=== PATIENT | male | born 1980 | race Caucasian/White ===

== ENCOUNTER 2016-12-25 14:11 | Emergency (ER) | payer OTHER ==
[~2016-12-25] VITALS: Ht 175.3 cm; Wt 147.8 kg
[~2016-12-25 14:11] MED LIST: CHOL100010 PO; LISI-461 PO; METH10TA2 PO; VENL150C56 PO
[2016-12-25 14:16] VITALS: TEMP 36.6; Ht 175.3 cm; Wt 147.8 kg
[2016-12-25] MEDS ORDERED: BUPR8MIS PO (16:15)
[2016-12-25] MEDS ORDERED: AMPH1TAB58 PO (16:15)
[2016-12-25] MEDS ORDERED: AMPH30TA2 PO (16:15)
[2016-12-25] MEDS ORDERED: TPRSR/100 PO (16:15)
[2016-12-25] MEDS ORDERED: BUPR8MIS SL ×2 (16:15)
[2016-12-25 16:28] LABS: BASO % 0.5 %; BASO ABS # 0.04 K/uL (0-0.2); COMPLETE YES; EOS % 4.7 %; HEMATOCRIT 45.6 % (42-52); IG% 0.4 %; LYMPH % 30.6 %; LYMPH ABS # 2.39 K/uL (1.2-3.4); MEAN CELL VOLUME 85.4 fL (80-100); MEAN CORPUSCULAR HEMOGLOBIN 29.6 pg (25-34); MEAN CORPUSCULAR HGB CONC 34.6 g/dl (32-36); MEAN PLATELET VOLUME 9.6 fL (7.4-10.4); MONO % 10.5 %; NEUT % 53.3 %; PLATELET COUNT 198 K/uL (130-400); RED BLOOD COUNT 5.34 M/uL (4.7-6.1); WHITE BLOOD COUNT 7.81 K/uL (4.8-10.8)
[2016-12-25 16:40] LABS: PARTIAL THROMBOPLASTIN RATIO 1.1; PROTHROMBIN TIME (PATIENT) 10.6 SECONDS (9.0-12.0)
[2016-12-25 16:44] LABS: BUN/CREATININE RATIO 11.9 (10-20); CALCIUM 8.3 mg/dl (8.5-10.1); POTASSIUM 4.1 mmol/L (3.5-5.1)
--- NOTE | 2016-12-25 17:14 | DIAGNOSTIC IMAGING REPORT ---
LEFT FOOT 3 VIEWS CLINICAL HISTORY: Left foot pain and swelling. FINDINGS: 3 views of the left foot are obtained. No prior studies are available for comparison at the time of dictation. The skeletal structures are well mineralized. No fracture is seen. The joint spaces of the foot are well-maintained. Soft tissue swelling is present along the dorsal aspect of the foot. IMPRESSION: Soft tissue swelling with no acute bony abnormality identified in the left foot. Electronically signed by: Jimmie Garcia M.D. 12/25/2016 5:12 PM Dictated Date/Time: 12/25/2016 5:11 PM
--- NOTE | 2016-12-25 17:20 | DIAGNOSTIC IMAGING REPORT ---
LEFT TIBIA AND FIBULA 2 VIEWS CLINICAL HISTORY: Left leg swelling. FINDINGS: AP and lateral views of the left tibia and fibula are obtained. No prior studies are available for comparison at the time of dictation. The skeletal structures are well mineralized. There is no radiographic evidence of left tibial or fibular fracture. The knee and ankle joints are grossly maintained. Soft tissue edema is present throughout the calf. IMPRESSION: Soft tissue swelling with no acute bony abnormality. Electronically signed by: Jimmie Garcia M.D. 12/25/2016 5:19 PM Dictated Date/Time: 12/25/2016 5:18 PM
[2016-12-25 17:30] VITALS: BP 132/75; PULSE 82; O2SAT 97
--- NOTE | 2016-12-25 18:42 | DIAGNOSTIC IMAGING REPORT ---
ULTRASOUND LEFT LOWER EXTREMITY VENOUS CLINICAL HISTORY: Left leg pain and swelling. COMPARISON STUDY: No priors. TECHNIQUE: Real-time, grayscale, and color Doppler sonography of the deep veins of the left lower extremity was performed from the inguinal crease to the calf. Compression and augmentation were utilized. FINDINGS: There is no sonographic evidence of deep venous thrombosis identified in the left lower extremity. The common femoral, superficial femoral, and popliteal veins are patent and normally compressible. The greater saphenous vein and the profunda femoris vein at the junction with the common femoral vein are clear. The visualized calf veins are patent. IMPRESSION: There is no sonographic evidence of deep venous thrombosis identified in the left lower extremity. Electronically signed by: Jimmie Garcia M.D. 12/25/2016 6:40 PM Dictated Date/Time: 12/25/2016 6:40 PM
--- NOTE | 2016-12-25 19:11 | EMERGENCY ROOM VISIT NOTE ---
History First contact with patient: 15:49 Chief Complaint: LEG PAIN,LEG INJURY Stated Complaint: LOWER LEFT LEG SOLID,TOP OF FOOT HURTS History of Present Illness The patient is a 36 year old male who presents to the Emergency Room with complaints of left lower leg pain and swelling. The patient states that for the past 3 weeks, he has had swelling and pain in the left lower leg. He denies any numbness or weakness. He denies any specific injury to the leg. He denies history of blood clots. He is a smoker. He denies any recent long travel. He rates his discomfort a 5/10. He has not taken any medication for pain. Review of Systems A complete 10 point review of systems was reviewed with the patient with pertinent positives and negatives as per history of present illness. All else were negative. Past Medical/Surgical History Medical Problems: (1) Depression (2) IV drug use (3) Opioid dependence Family History FHx: depression Social History Smoking Status: Current Every Day Smoker Alcohol Use: none Drug Use: heroin Marital Status: Occupation Status: employed Current/Historical Medications Scheduled Amphetamine-Dextroamphetamine 30MG (Adderall 30MG), 30 MG PO BID Amphetamine-Dextroamphetamine 5MG (Adderall 5MG), 5 MG PO DAILY Buprenorphine Hcl-Naloxone Hcl (Suboxone 8-2 Mg), 1 TAB SL QAM Buprenorphine Hcl-Naloxone Hcl (Suboxone 8-2 Mg), 1 TAB SL AFTERNOON Buprenorphine Hcl-Naloxone Hcl (Suboxone 8-2 Mg), 1 TAB PO QPM Clonazepam (Klonopin), 1 MG PO BID Metoprolol Succinate (Metoprolol Succinate ER), 100 MG PO DAILY Allergies Coded Allergies: Penicillins (Verified Allergy, Intermediate, HIVES, 02/21/12) Morphine (Verified Adverse Reaction, sick, 05/08/13) Physical Exam Vital Signs Date Time Temp Pulse Resp B/P (MAP) Pulse Ox O2 Delivery O2 Flow Rate FiO2 12/25/16 19:10 12/25/16 17:30 82 18 132/75 97 Room Air 12/25/16 14:16 36.6 97 16 147/89 97 Physical Exam VITALS: Vitals are noted on the nurse's note and reviewed by myself. Vital signs stable. GENERAL: This is a 36-year-old male, in no acute distress, nondiaphoretic, well- developed well-nourished. SKIN: Capillary reflex less than 2 seconds. HEART: Regular rate and rhythm without murmurs gallops or rubs. LUNGS: Clear to auscultation bilaterally without wheezes, rales or rhonchi. MUSCULOSKELETAL: Soft tissue swelling of the left lower leg. There is no erythema or palpable cord. Pedal pulses are 2+. Full range of motion throughout the left lower extremity. NEURO: Patient was alert and oriented to person place and time. Normal sensation to light and sharp touch. Medical Decision & Procedures ER Provider Diagnostic Interpretation: LEFT TIBIA AND FIBULA 2 VIEWS FINDINGS: AP and lateral views of the left tibia and fibula are obtained. No prior studies are available for comparison at the time of dictation. The skeletal structures are well mineralized. There is no radiographic evidence of left tibial or fibular fracture. The knee and ankle joints are grossly maintained. Soft tissue edema is present throughout the calf. IMPRESSION: Soft tissue swelling with no acute bony abnormality. LEFT FOOT 3 VIEWS FINDINGS: 3 views of the left foot are obtained. No prior studies are available for comparison at the time of dictation. The skeletal structures are well mineralized. No fracture is seen. The joint spaces of the foot are well-maintained. Soft tissue swelling is present along the dorsal aspect of the foot. IMPRESSION: Soft tissue swelling with no acute bony abnormality identified in the left foot. ULTRASOUND LEFT LOWER EXTREMITY VENOUS FINDINGS: There is no sonographic evidence of deep venous thrombosis identified in the left lower extremity. The common femoral, superficial femoral, and popliteal veins are patent and normally compressible. The greater saphenous vein and the profunda femoris vein at the junction with the common femoral vein are clear. The visualized calf veins are patent. IMPRESSION: There is no sonographic evidence of deep venous thrombosis identified in the left lower extremity. Laboratory Results 12/25/16 16:20 Red Blood Count 5.34, Mean Corpuscular Volume 85.4, Mean Corpuscular Hemoglobin 29.6, Mean Corpuscular Hemoglobin Concent 34.6, Mean Platelet Volume 9.6, Neutrophils (%) (Auto) 53.3, Lymphocytes (%) (Auto) 30.6, Monocytes (%) (Auto) 10.5, Eosinophils (%) (Auto) 4.7, Basophils (%) (Auto) 0.5, Neutrophils # (Auto ) 4.16, Lymphocytes # (Auto) 2.39, Monocytes # (Auto) 0.82, Eosinophils # (Auto ) 0.37, Basophils # (Auto) 0.04 12/25/16 16:20 Test 12/25/16 16:20 White Blood Count 7.81 K/uL (4.8-10.8) Red Blood Count 5.34 M/uL (4.7-6.1) Hemoglobin 15.8 g/dL (14.0-18.0) Hematocrit 45.6 % (42-52) Mean Corpuscular Volume 85.4 fL (80-100) Mean Corpuscular Hemoglobin 29.6 pg (25-34) Mean Corpuscular Hemoglobin Concent 34.6 g/dl (32-36) Platelet Count 198 K/uL (130-400) Mean Platelet Volume 9.6 fL (7.4-10.4) Neutrophils (%) (Auto) 53.3 % Lymphocytes (%) (Auto) 30.6 % Monocytes (%) (Auto) 10.5 % Eosinophils (%) (Auto) 4.7 % Basophils (%) (Auto) 0.5 % Neutrophils # (Auto) 4.16 K/uL (1.4-6.5) Lymphocytes # (Auto) 2.39 K/uL (1.2-3.4) Monocytes # (Auto) 0.82 K/uL (0.11-0.59) Eosinophils # (Auto) 0.37 K/uL (0-0.5) Basophils # (Auto) 0.04 K/uL (0-0.2) RDW Standard Deviation 39.8 fL (36.4-46.3) RDW Coefficient of Variation 12.9 % (11.5-14.5) Immature Granulocyte % (Auto) 0.4 % Immature Granulocyte # (Auto) 0.03 K/uL (0.00-0.02) Prothrombin Time 10.6 SECONDS (9.0-12.0) Prothromb Time International Ratio 1.0 (0.9-1.1) Activated Partial Thromboplast Time 28.5 SECONDS (21.0-31.0) Partial Thromboplastin Ratio 1.1 Anion Gap 4.0 mmol/L (3-11) Est Creatinine Clear Calc Drug Dose 145.3 ml/min Estimated GFR () 110.9 Estimated GFR (Non- 95.7 BUN/Creatinine Ratio 11.9 (10-20) Calcium Level 8.3 mg/dl (8.5-10.1) Medical Decision Differential diagnosis includes DVT, muscular strain, superficial thrombophlebitis, compartment syndrome, among others. The patient is a 36-year-old male who presents today complaining of left lower leg pain. He does have some swelling on examination. There is no numbness. He has good pulses. I am not suspicious of compartment syndrome. Ultrasound showed no DVT. X-rays of the tibia/fibula and foot were unremarkable. Labs were unremarkable. I am unsure the cause of patient's leg swelling. He was instructed to follow-up with his primary care provider and orthopedics for further evaluation of his symptoms. He was instructed to elevate the leg for swelling and pain. The patient's case was reviewed with Dr. Khan, ED attending physician, who agreed with my assessment and treatment plan. Based on the patient's presentation and work up, I feel the patient is stable for outpatient treatment. The patient was educated to return to the emergency department for any worsening of their current condition or new/concerning symptoms. He will follow up with his PCP or orthopedics. I attest that I have personally reviewed the patient's current medication list. Blood pressure screening: Patient was found to have normal blood pressure on screening and does not require follow-up. Impression Primary Impression: Left leg swelling Departure Information Dispostion Home / Self-Care Condition GOOD Referrals No Doctor, Assigned (PCP) Óscar England D.O. Patient Instructions My [facility] Additional Instructions Elevate the leg for swelling. For pain control, you can use the following [id number] medicines (if >12 yo): - Regular strength (325mg/tab) Tylenol (acetaminophen) 2 tabs every 4-6 hours as needed. Do not exceed 12 tablets in a 24 hour period. Avoid taking more than 4 grams (4000 mg) of Tylenol per day. This includes any other sources of acetaminophen you may take on a regular basis. - Regular strength (200 mg/tab) Advil (ibuprofen) 1-2 tabs every 4-6 hours as needed. Do not exceed a dose of 3200 mg per day. Follow-up with your family doctor or orthopedics this week for further evaluation.
[2016-12-25] MEDS ORDERED: CLON1TAB3 PO (19:24)
== END 2016-12-25 19:20 | disposition home or self-care (01) ==
LOC: C.EDB 14:12 → C.EDD 19:20
DX: M79.89 Other specified soft tissue disorders (principal); F32.9 Major depressive disorder, single episode, unspecified; F11.20 Opioid dependence, uncomplicated; F17.210 Nicotine dependence, cigarettes, uncomplicated; Z79.899 Other long term (current) drug therapy